=== PATIENT | female | born 1980 | race Caucasian/White ===

== ENCOUNTER 2018-08-17 06:20 | Outpatient (CLI) | payer BC ==
[2018-08-17] VITALS (9 sets, daily range): BP systolic 90–111; BP diastolic 50–70; PULSE 64–100; TEMP 98.4
[~2018-08-17] VITALS: Ht 162.6 cm; Wt 75.0 kg
[2018-08-17] MEDS ORDERED: ZYRTEC 10MG10 MG PO (06:49)
[2018-08-17] MEDS ORDERED: PRENATAL MVI (06:49)
== END 2018-08-17 10:45 | disposition home or self-care (01) ==
LOC: LDRO 06:20
DX: O32.1XX0 Maternal care for breech presentation, not applicable or unspecified (principal); Z3A.38 38 weeks gestation of pregnancy
CPT/HCPCS: J3105; J7120

== ENCOUNTER 2022-11-09 20:48 | Emergency (ER) | payer BC ==
[~2022-11-09] VITALS: Ht 162.6 cm; Wt 65.9 kg
[~2022-11-09 20:48] MED LIST: IBU800 M1 PO; PERCOCET 325 MG1 TA2 PO; PRENATAL MVI; ZYRTEC 10MG10 MG PO
[2022-11-09 20:51] VITALS: BP 133/87; PULSE 77; TEMP 97.7
== END 2022-11-09 21:17 | disposition home or self-care (01) ==
LOC: COL.ER 20:48
DX: S09.90XA Unspecified injury of head, initial encounter (principal); S01.01XA Laceration without foreign body of scalp, initial encounter; W20.8XXA Other cause of strike by thrown, projected or falling object, initial encounter

== ENCOUNTER → 2024-08-01 | Outpatient (CLI) | payer BC | LOC: MC.RAD 08:21 | DX: Z12.31 Encounter for screening mammogram for malignant neoplasm of breast (principal) ==